=== PATIENT | male | born 1935 | race Caucasian/White ===

== ENCOUNTER 2019-07-21 10:49 | Emergency (ER) | payer MEDICARE, BC ==
[~2019-07-21] VITALS: Ht 180.3 cm; Wt 87.3 kg
[~2019-07-21 10:49] MED LIST: ASPI-1265 PO; MECL25TA3 PO; ROSU10TA2 PO
[2019-07-21] MEDS ORDERED: bacitracin 15gm ointment TP ONE (13:20)
[2019-07-21 13:44] VITALS: BP 143/57
== END 2019-07-21 13:51 | disposition home or self-care (01) ==
LOC: ER 10:50
DX: S61.411A Laceration without foreign body of right hand, initial encounter (principal); S50.312A Abrasion of left elbow, initial encounter; G47.30 Sleep apnea, unspecified; R51 Headache; M54.2 Cervicalgia; Z88.8 Allergy status to other drugs, medicaments and biological substances; Z79.899 Other long term (current) drug therapy; Z79.82 Long term (current) use of aspirin; Z91.013 Allergy to seafood; W01.198A Fall on same level from slipping, tripping and stumbling with subsequent striking against other object, initial encounter; Y93.89 Activity, other specified; Y92.89 Other specified places as the place of occurrence of the external cause; Y99.8 Other external cause status
CPT/HCPCS: 12002; 70450; 72125; 93005; 99284

== ENCOUNTER 2021-05-02 11:51 | Emergency (ER) | payer MEDICARE, BC ==
[~2021-05-02] VITALS: Ht 180.3 cm; Wt 81.0 kg
--- NOTE | 2021-05-02 14:18 | NUR ---
dr medellin at bedside.
[2021-05-02] MEDS ORDERED: LIDOcaine Viscous 15ml cup TP ONE ×2 (14:25→15:45)
--- NOTE | 2021-05-02 14:32 | NUR ---
to ct scan.
[2021-05-02] MEDS ORDERED: LIDOcaine 1% 30ml preserv. free vial IJ STA (14:45)
[2021-05-02 15:52] VITALS: BP 159/80
== END 2021-05-02 16:36 | disposition home or self-care (01) ==
LOC: ER 11:51
DX: S51.011A Laceration without foreign body of right elbow, initial encounter (principal); S81.812A Laceration without foreign body, left lower leg, initial encounter; S00.83XA Contusion of other part of head, initial encounter; S00.33XA Contusion of nose, initial encounter; S50.11XA Contusion of right forearm, initial encounter; S09.90XA Unspecified injury of head, initial encounter; G47.30 Sleep apnea, unspecified; Z72.89 Other problems related to lifestyle; Z91.013 Allergy to seafood; Z79.82 Long term (current) use of aspirin; Z79.899 Other long term (current) drug therapy; Z95.0 Presence of cardiac pacemaker; W18.09XA Striking against other object with subsequent fall, initial encounter; Y93.89 Activity, other specified; Y92.89 Other specified places as the place of occurrence of the external cause; Y99.8 Other external cause status
CPT/HCPCS: 70450; 96368; 99284

== ENCOUNTER 2022-11-29 06:27 | Day surgery (SDC) | payer MEDICARE, BC ==
[2022-11-23 10:48] LABS: BASOPHILS % (AUTO) 0.5 % (0-1); EOSINOPHILS # (AUTO) 0.1 X10'3 (0-0.9); EOSINOPHILS % (AUTO) 1.9 % (0-6); LYMPHOCYTES % (AUTO) 26.1 % (21-51); MEAN CORPUSCULAR HEMOGLOBIN 29.5 PG (27.0-31.0); MEAN CORPUSCULAR HGB CONC 33.4 g/dL (33.0-36.5); MEAN CORPUSCULAR VOLUME 88.3 FL (78-98); MEAN PLATELET VOLUME 7.3 FL (7.4-10.4); MONOCYTES # (AUTO) 0.6 X10'3 (0-0.9); MONOCYTES % (AUTO) 7.4 % (2-12); NEUTROPHILS # (AUTO) 4.9 X10'3 (1.8-7.7); NEUTROPHILS % (AUTO) 64.1 % (42-75); PRE OP HEMATOCRIT 40.2 % (42.0-52.0); PRE OP HEMOGLOBIN 13.4 g/dL (14.0-17.9); PRE OP PLATELET COUNT 162 X10'3 (140-440); RED BLOOD COUNT 4.56 X10'6 (4.70-6.10); RED CELL DISTRIBUTION WIDTH 14.4 % (11.5-14.5)
[2022-11-23 11:08] LABS: ALBUMIN 3.5 G/DL (3.4-5.0); ALKALINE PHOSPHATASE 79 IU/L (46-116); BLOOD UREA NITROGEN 18 MG/DL (7-18); BUN/CREATININE RATIO 17.1 (5.4-32.0); CHLORIDE 102 MMOL/L (99-107); CREATININE 1.05 MG/DL (0.60-1.10); PRE OP ALT 20 U/L (30-65); PRE OP ANION GAP 4 (8-16); PRE OP AST 19 U/L (10-37); PRE OP BILIRUB, TOTAL 0.3 MG/DL (0.0-1.0); PRE OP GLUCOSE 92 MG/DL (70-104); PRE OP POTASSIUM 3.9 MMOL/L (3.4-5.1); PRE OP SODIUM 135 MMOL/L (135-145); TOTAL CARBON DIOXIDE 29.3 MMOL/L (24-32); eGFR 67 ML/MIN
[2022-11-23 11:32] LABS: CLARITY,URINE CLEAR (Clear); COLOR,URINE YELLOW (Yellow); GLUCOSE, URINE NEGATIVE (Neg); KETONES,URINE NEGATIVE (Neg); LEUKOCYTE ESTERASE ,URINE NEGATIVE (Neg); NITRITES, URINE NEGATIVE (Neg); OCCULT BLOOD,URINE TRACE-INTACT (Neg); PROTEIN,URINE NEGATIVE (Neg); UROBILINOGEN,URINE 0.2 E.U/dL (0.2-1.0)
[2022-11-23 11:39] LABS: UA COLLECTION TYPE VOIDED
[2022-11-23 11:42] LABS: BACTERIA,URINE FEW /HPF (Neg); SQUAMOUS EPITHELIAL CELL,UR FEW /LPF (FEW); WBC,URINE 0-4 /HPF (0-4)
[2022-11-23 11:43] LABS: MUCUS STRANDS MANY /LPF (Neg)
[2022-11-29] VITALS (13 sets, daily range): BP systolic 124–149; BP diastolic 64–80
[~2022-11-29] VITALS: Ht 180.3 cm; Wt 72.6 kg
[~2022-11-29 06:27] MED LIST changes: +APIX5TAB3 PO; -ASPI-1265 PO; +FLUT16SP26 BOTHNARES; -MECL25TA3 PO; +ceFAZolin inj. 2,000 MG in dextrose 5%-water 100 ML IV ONE; +famotidine 20mg tablet PO ONE; +ringers solution, lacted 1,000 ML IV SCH
[2022-11-29] MEDS ORDERED: morphine 4 MG/ML inj SYRINge IV PRN ×2 (11:25→11:40)
[2022-11-29] MEDS ORDERED: ringers solution, lacted 1,000 ML IV SCH ×2 (11:25→11:40)
[2022-11-29] MEDS ORDERED: proCHLORperazine 10 MG/2 ml inj IV PRN (11:25)
[2022-11-29] MEDS ORDERED: morphine 2 MG/ML inj. syringe IV PRN ×2 (11:25→11:40)
[2022-11-29] MEDS ORDERED: meperidine/PF 25mg/ml syringe IV PRN ×3 (11:25)
[2022-11-29] MEDS ORDERED: ondansetron/PF 4mg/2ml inj IV PRN ×2 (11:25→11:40)
[2022-11-29] MEDS ORDERED: BUPIVAcaine 0.5% inj/PF 30 ML ONE (11:30)
[2022-11-29] MEDS ORDERED: ondansetron/PF 4mg/2ml inj ONE (11:40)
[2022-11-29] MEDS ORDERED: labetalol 20mg/4ml (5mg/ml) syringe IV PRN (11:40)
[2022-11-29] MEDS ORDERED: sevoflurane 250ml liquid IH ONE (11:40)
[2022-11-29] MEDS ORDERED: fentaNYL/PF 50MCG/1 ML 2ML syringe IV PRN ×2 (11:40)
[2022-11-29] MEDS ORDERED: glycopyrrolate 0.2mg/ml inj ONE (11:40)
[2022-11-29] MEDS ORDERED: neostigmine methylsulfate 1 MG/ML 10ml vial ONE (11:40)
[2022-11-29] MEDS ORDERED: dexamethasone sod phosphate 4mg/ml inj. ONE (11:40)
[2022-11-29] MEDS ORDERED: LIDOcaine 1%/PF 5ML 10 MG/ML VIAL ONE (11:40)
[2022-11-29] MEDS ORDERED: hydrALAZINE 20mg/ml inj. IV PRN (11:40)
[2022-11-29] MEDS ORDERED: fentaNYL/PF 50MCG/1 ML 2ML syringe ONE (11:48)
[2022-11-29] MEDS ORDERED: midazolam 1 mg/ML 2ml injection ONE (11:48)
[2022-11-29] MEDS ORDERED: propofol inj 20 ML IV ONE (12:00)
[2022-11-29] MEDS ORDERED: rocuronium 10mg/ml inj IV ONE (12:17)
[2022-11-29] MEDS ORDERED: BUPIVAcaine 0.5% inj/PF 30 ml vial IJ ONE (12:35)
--- NOTE | 2022-11-29 13:05 | NUR ---
Received from OR via , accompanied by Anesthesiologist and report given by Anesthesiolgist. PATIENT A&OX4, DENIES PAIN, V/S WNL, SCD ON , PIV 20G LUE, LAPS SITES CLOSED CDI TO ABDOMEN W/ BANDAIDS.
--- NOTE | 2022-11-29 14:45 | NUR ---
PATIENT A&OX4, DENIES PAIN, V/S WNL, SCD OFF , PIV 20G LUE D/C, LAPS SITES CLOSED CDI TO ABDOMEN W/ BANDAIDS. I HAVE REVIEWED D/C INSTRUCTIONS WITH PATIENT AND THEY HAVE VERBALIZED UNDERSTANDING OF INSTRUCTIONS. PATIENT D/C HOME WITH ALL BELONGINGS AND FAMILY GAVE TRANSPORT
== END 2022-11-29 14:45 | disposition home or self-care (01) ==
LOC: PAS 06:27
PROVIDERS: ATTEND Surgery
DX: K80.10 Calculus of gallbladder with chronic cholecystitis without obstruction (principal); E78.5 Hyperlipidemia, unspecified; G47.30 Sleep apnea, unspecified; Z87.891 Personal history of nicotine dependence; Z88.5 Allergy status to narcotic agent; Z88.8 Allergy status to other drugs, medicaments and biological substances; Z91.013 Allergy to seafood; Z95.0 Presence of cardiac pacemaker; Z98.890 Other specified postprocedural states; Z79.01 Long term (current) use of anticoagulants; Z79.899 Other long term (current) drug therapy
CPT/HCPCS: 36415; 47562; 80053; 81001; 82948; 85025; 93005; J0690; J1100; J2250; J2270; J2405; J2704; J2710; J3010; J3490; J7060; J7120; S0020; Z7506; Z7508; Z7512; 88304; A4215; A4618; A7000

== ENCOUNTER 2022-12-12 19:12 | Emergency (ER) | payer MEDICARE, BC ==
[~2022-12-12] VITALS: Ht 180.3 cm; Wt 81.8 kg
[~2022-12-12 19:12] MED LIST changes: -ceFAZolin inj. 2,000 MG in dextrose 5%-water 100 ML IV ONE; -famotidine 20mg tablet PO ONE; -ringers solution, lacted 1,000 ML IV SCH
[2022-12-12 19:42] VITALS: BP 149/65
[2022-12-12] MEDS ORDERED: acetaminophen 325mg tablet PO ONE (22:35)
== END 2022-12-13 00:19 | disposition home or self-care (01) ==
LOC: ER 19:13
DX: S51.012A Laceration without foreign body of left elbow, initial encounter (principal); S09.90XA Unspecified injury of head, initial encounter; R07.81 Pleurodynia; Z88.5 Allergy status to narcotic agent; Z88.6 Allergy status to analgesic agent; Z91.013 Allergy to seafood; Z87.891 Personal history of nicotine dependence; W19.XXXA Unspecified fall, initial encounter; Y93.89 Activity, other specified; Y92.89 Other specified places as the place of occurrence of the external cause; Y99.8 Other external cause status
CPT/HCPCS: 70450; 71046; 71100; 99284

== ENCOUNTER 2025-03-26 12:58 | Inpatient (IN) | payer MEDICARE, BC ==
[~2025-03-26] VITALS: Ht 180.3 cm; Wt 78.2 kg
--- NOTE | 2025-03-26 13:09 | ELECTROCARDIOGRAPH REPORT ---
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 John Ndiaye Measurements Intervals [place] Rate: 74 P: 0 GA: 45 QRS: -63 QRSD: 161 T: 90 QT: 477 QTc: 530 Interpretive Statements A-V dual-paced complexes w/ some inhibition No further analysis attempted due to paced rhythm Electronically Signed On 04-03-2025 18:42:[address] John Ndiaye Please click the below link to view image of tracing.
--- NOTE | 2025-03-26 13:12 | Physician Documentation ---
History of Present Illness ~ Stated Complaint: DIZZINESS Time Seen by MD: 13:04 Primary Medical Doctor: RONNY PALOMARES 89-year-old male presents to the ED with 2 hours of jcekizkj-nk-clfsqf dizziness. 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 He also adds that he checked his blood pressure and it was high for him. He reported having 170 systolic. I states that his arms feel weak and that his dizziness makes him feel as though he is unstable when trying to stand for denies any chest pain, reports increased shortness of breath. Denies nausea Medication Reconciliation Allergies: Coded Allergies: Shellfish (Verified Allergy, Unknown, hives, 11/28/22) acetaminophen (Verified Allergy, Unknown, lose control, 11/28/22) codeine (Verified Allergy, Unknown, lose control, 11/28/22) hydrocodone (Verified Allergy, Unknown, lose control, 11/28/22) tolmetin sodium (Verified Allergy, Unknown, 07/06/18) Uncoded Allergies: TAPE (Adverse Reaction, Severe, SKIN TEAR WITH BLEEDING, 12/01/22) Scheduled Apixaban (Eliquis), 1 TAB PO BID, (Reported) Fluticasone Propionate (Fluticasone Propionate), 2 SPRAYS BOTHNARES HS, (Reported) Rosuvastatin Calcium* (Crestor*), 10 MG PO HS, (Reported) Past Medical History Past Medical History: Sleep Apnea Past Surgical History: orthopedic surgeries, pacemaker, other Other Past Family History: none Alcohol Use: Occasionally Drug Use: none Lives with: Family Lives In: Home Occupation: employed Physical Exam Physical Exam General: Alert, mild distress. Respiratory: Lungs clear, no respiratory distress. Chest: No accessory muscle use. Cardiovascular: Regular rate and rhythm, no murmurs. v paced Neurologic: Oriented x4. Psychiatric: Normal mood and affect. Skin: Normal color, warm and dry. No edema, no ecchymosis. Progress Results/Orders Results/Orders Orders - SANTOSH PATINO CLINICAL OPERATIONS MANAGER Chest,Single View (03/26/25 13:05) Monitor (03/26/25 13:05) Saline Lock (03/26/25 13:05) Oxygen (03/26/25 13:05) Hs Troponin I W Calculations (03/26/25 15:05) Hs Troponin I W Calculations (03/26/25 16:05) * Orthostatic Vitals* Q12H (03/26/25 14:03) Page Hospitalist (03/26/25 14:04) Fill Out Med Reconciliation (03/26/25 14:04) Completed Orders - SANTOSH PATINO CLINICAL OPERATIONS MANAGER Chest,Single View (03/26/25 13:05) Cbc/Diff (03/26/25 13:05) BMP (03/26/25 13:05) PBNP (03/26/25 13:05) Electrocardiogram (03/26/25 13:05) Hs Troponin I W Calculations (03/26/25 13:05) Urinalysis, Cult If Indicated (03/26/25 13:58) Vital Signs 03/26/25 03/26/25 13:00 14:15 Temp 97.4 Pulse 71 81 Resp 20 19 B/P (MAP) 160/98 127/82 (97) Pulse Ox 98 98 O2 Flow Rate 0 0 Laboratory Tests Test 03/26/25 13:24 03/26/25 14:14 White Blood Count 6.9 Red Blood Count 4.32 L Hemoglobin 12.7 L Hematocrit 37.6 L Mean Corpuscular Volume 87.0 Mean Corpuscular Hemoglobin 29.5 Mean Corpuscular Hemoglobin Concent 33.9 Red Cell Distribution Width 14.4 Platelet Count 160 Mean Platelet Volume 6.9 L Neutrophils (%) (Auto) 60.9 Lymphocytes (%) (Auto) 27.5 Monocytes (%) (Auto) 8.3 Eosinophils (%) (Auto) 2.8 Basophils (%) (Auto) 0.5 Neutrophils # (Auto) 4.2 Lymphocytes # (Auto) 1.9 Monocytes # (Auto) 0.6 Eosinophils # (Auto) 0.2 Basophils # (Auto) 0.0 CBC Comment Sodium Level 130 L Potassium Level 4.1 Chloride Level 96 L Carbon Dioxide Level 25.9 Anion Gap 8 Blood Urea Nitrogen 15 Creatinine 1.03 Estimated GFR/1.73 m2 68 BUN/Creatinine Ratio 14.6 Glucose Level 100 Calcium Level 8.8 Troponin I High Sensitivity 8 Pro-B-Type Natriuretic Peptide 308 Albumin 3.2 L Chemistry Comments Urine Specimen Description Cln catch midstream Urine Color Straw Urine Clarity Clear Urine pH 7.5 Urine Specific [place] 1.010 Urine Protein Negative Urine Glucose (UA) Negative Urine Ketones Negative Urine Occult Blood Negative Urine Nitrite Negative Urine Bilirubin Negative Urine Urobilinogen 0.2 Urine Leukocyte Esterase Negative Urine Culture Indicated Not ind Volume Urine Centrifuged 10 ml Urine Comment Medical Decision Making Findings Can not currently rule out cardiac related dizziness.. Patient remains hemodynamically stable in the ED however I am requesting hospital admission for further evaluation and potential CT scan of the patient's head Differential Dx:Considerations: Include: anemia, CVA, dehydration, dysrhythmia, electrolyte imbalance, encephalopathy, Guillain-[place], hypoglycemia, hypotension, hypovolemia, labyrinthitis, Meniere's disease, myasathenia gravis, myocardial infarction, pulmonary embolus, renal failure, respiratory failure, TIA, VBI, vertigo central, vertigo peripheral, vestibular neuronitis, other Departure Disposition: 09 ADMITTED INPATIENT Impression: Primary Impression: Dizziness Condition: Stable Referrals: NO PRIMARY CARE PROVIDER (PCP) Signature Scribe Signature: d Attestation: Scribed for Santosh Patino Miner by Santosh Leigh NP . 03/26/25 15:10 SANTOSH PATINO NP Mar 26, 2025 13:12
[2025-03-26 13:31] LABS: BASOPHILS % (AUTO) 0.5 % (0-1); EOSINOPHILS # (AUTO) 0.2 X10'3 (0-0.9); EOSINOPHILS % (AUTO) 2.8 % (0-6); HEMATOCRIT 37.6 % (42.0-52.0); HEMOGLOBIN 12.7 g/dl (14.0-17.9); LYMPHOCYTES # (AUTO) 1.9 X10'3 (1.1-4.8); LYMPHOCYTES % (AUTO) 27.5 % (21-51); MEAN CORPUSCULAR HEMOGLOBIN 29.5 PG (27.0-31.0); MEAN CORPUSCULAR HGB CONC 33.9 g/dL (33.0-36.5); MEAN PLATELET VOLUME 6.9 FL (7.4-10.4); MONOCYTES # (AUTO) 0.6 X10'3 (0-0.9); MONOCYTES % (AUTO) 8.3 % (2-12); NEUTROPHILS # (AUTO) 4.2 X10'3 (1.8-7.7); NEUTROPHILS % (AUTO) 60.9 % (42-75); PLATELET COUNT 160 X10'3 (140-440); RED BLOOD COUNT 4.32 X10'6 (4.70-6.10); RED CELL DISTRIBUTION WIDTH 14.4 % (11.5-14.5); WHITE BLOOD COUNT 6.9 X10'3 (4.5-11.0)
--- NOTE | 2025-03-26 13:37 | RADIOLOGY REPORT ---
CHEST RADIOGRAPH Indication: CP Technique: Single frontal view of the chest was obtained COMPARISON: None FINDINGS: Lines and Tubes: Left chest wall pacemaker Lungs: Clear Pleura: No effusion. No pneumothorax. Cardiomediastinal contours: Unremarkable Bones: Unremarkable IMPRESSION: No acute disease.
[2025-03-26 14:02] LABS: ALBUMIN 3.2 G/DL (3.4-5.0); ANION GAP 8 (8-16); BLOOD UREA NITROGEN 15 MG/DL (7-18); BUN/CREATININE RATIO 14.6 (10.0-20.0); CALCIUM 8.8 MG/DL (8.5-10.1); CHLORIDE 96 MMOL/L (99-107); CREATININE 1.03 MG/DL (0.60-1.10); GLUCOSE 100 MG/DL (70-104); POTASSIUM 4.1 MMOL/L (3.5-5.1); PRO BRAIN NATRIURETIC PEPTIDE 308 PG/ML (0-450); SODIUM 130 MMOL/L (135-145); TOTAL CARBON DIOXIDE 25.9 MMOL/L (24-32); eCRCL 53 ML/MIN; eGFR 68 ML/MIN
[2025-03-26 14:30] LABS: BILIRUBIN,URINE NEGATIVE (Neg); CLARITY,URINE CLEAR (Clear); COLOR,URINE STRAW (Yellow); GLUCOSE, URINE NEGATIVE (Neg); KETONES,URINE NEGATIVE (Neg); LEUKOCYTE ESTERASE ,URINE NEGATIVE (Neg); NITRITES, URINE NEGATIVE (Neg); OCCULT BLOOD,URINE NEGATIVE (Neg); PH,URINE 7.5 (4.8-8.0); PROTEIN,URINE NEGATIVE (Neg); UROBILINOGEN,URINE 0.2 E.U/dL (0.2-1.0)
[2025-03-26] MEDS ORDERED: potassium Cl 40MEQ/1/2NS 520ml 520 ML IV PRN (14:30)
[2025-03-26] MEDS ORDERED: magnesium Cl slow-release 64mg tablet PO PRN (14:30)
[2025-03-26] MEDS ORDERED: magnesium sulf-water 4G/100mL 100 ML IV PRN (14:30)
[2025-03-26] MEDS ORDERED: potassium Cl 20 mEq SR tablet PO PRN ×2 (14:30)
[2025-03-26] MEDS ORDERED: ondansetron/PF 4mg/2ml inj IV PRN (14:30)
[2025-03-26] MEDS ORDERED: magnesium sulf-water 2g/50mL 50 ML IV PRN (14:30)
[2025-03-26 14:31] LABS: UA COLLECTION TYPE CLN CATCH MIDSTREAM
[2025-03-26] MEDS ORDERED: ASCO100031 PO (15:24)
[2025-03-26] MEDS: normal saline 1000ml 1,000 ML IV SCH (15:26)
--- NOTE | 2025-03-26 15:28 | RADIOLOGY REPORT ---
CT CT HEAD Indication: Dizziness EXAM DATE: 03/26/2025 02:59 PM COMPARISON: CT HEAD on DOS: 12/12/22, CT HEAD on DOS: 05/02/21 TECHNIQUE: CT of the head without intravenous contrast. RADIATION DOSE: CTDIvol: 57 mGy, DLP: 1070 mGy*cm FINDINGS: There is no intracranial hemorrhage. There is no extra-axial fluid, mass, mass effect or midline shif t. The ventricles are midline and normal in size. Basilar cisterns are patent. There are moderate per iventricular and subcortical white matter chronic microvascular ischemic changes. Zwbv-de-osxknxst g lobal cerebral volume loss. Old bilateral basal ganglia lacunar infarcts. The paranasal sinuses and mastoids are well-pneumatized. Imaged portion of the orbits are unremarkabl e. IMPRESSION: No intracranial hemorrhage or mass effect. Moderate chronic microvascular ischemic changes. Vgnp-zo-givbjoku global cerebral volume loss.
[2025-03-26 18:00] VITALS: BP 177/85; PULSE 83; RESP 17; TEMP 97.8; O2SAT 97
--- NOTE | 2025-03-26 18:28 | CARDIOLOGY REPORT ---
APPROVED REPORT EXAM: Comprehensive 2D, Doppler, and color-flow Echocardiogram. Patient Location: ER RM 10 Blood Pressure: 160/98 mmHg Heart Rate: 67 bpm Rhythm: Pacemaker Indications Syncope ProBNP: 308 Bradycardia Pacemaker (2008) Sleep Apnea CARDIAC TECH: Salvador Anaya MD NO Previous ECHO 2D Dimensions LA Diam2.7 cm IVSd 1.0 (0.7-1.1cm) LVDd 4.9 cm PWd 0.9 (0.7-1.1cm) IVSs 1.6 (0.8-1.2cm) LVDs 2.7 (2.5-4.0cm) PWs 1.3 (0.8-1.2cm) LVOT Diameter 2.02 (1.8-2.4cm) LVEF(%) 75.8 (>50%) Ao Asc Diam.3.38 cm IVC 14.26 mmFS (%) 44.7 % SV 86.8 ml CO 6.2 L/min M-Mode Dimensions Aortic Root 3.56 (2.2-3.7cm) Aortic Cusp Exc 1.25 (1.5-2.0cm) MV EPSS 0.3 (<0.5cm) Aortic Valve AoV Peak Brendan. 141.0 cm/s AoV VTI 32.0 cm AO Peak GR. 7.9 mmHg AO Mean GR. 5 mmHg LVOT VTI 24.47 cm LVOT Peak Brendan. 107.4 cm/s ÁNGELA(VTI)/BSA 2.45 cm2/m2 ÁNGELA (VTI) 2.45 cm2 Mitral Valve MV E Velocity 65.4 cm/s MV Peak Gr. 2 mmHg MV DECEL TIME 256 ms MV A Velocity 81.2 cm/s MV PHT 68 ms E/A Ratio 0.8 MVA (PHT) 3.24 cm2 MV VMax73.0 cm/s TDI Lateral E' P. V10.61 cm/s E/Lateral E' 6.2 Tricuspid Valve TR P. Velocity 248 cm/s RAP ESTIMATE 10 mmHg TR Peak Gr. 25 mmHg RVSP 35 mmHg LEFT VENTRICLE Normal LV size and wall thickness. Overall systolic function is normal. LVEF is 70-75%. RIGHT VENTRICLE RV is normal size and function. ATRIA The left atrium size is normal. Pacemaker lead is present in the right heart. AORTIC VALVE Trileaflet AV appears mildly sclerotic without stenosis. No insufficiency. MITRAL VALVE Mild mitral annular calcification without stenosis. Mild regurgitation. TRICUSPID VALVE The tricuspid valve is normal in structure with trace regurgitation. PULMONIC VALVE The pulmonary valve is normal in structure with physiologic insufficiency. GREAT VESSELS The aortic root is normal in size. The ascending aorta is normal in size. The IVC is normal in size a nd collapses >50% with inspiration. PERICARDIUM Normal pericardium. No effusion. Other Information Study Quality: Adequate Conclusion Normal LV size and wall thickness. Overall systolic function is normal. LVEF is 70-75%. RV is normal size and function. The left atrium size is normal. Pacemaker lead is present in the right heart. Trileaflet AV appears mildly sclerotic without stenosis. No insufficiency. Mild mitral annular calcification without stenosis. Mild regurgitation. The tricuspid valve is normal in structure with trace regurgitation. The pulmonary valve is normal in structure with physiologic insufficiency. Normal pericardium. No effusion.
--- NOTE | 2025-03-26 19:08 | HISTORY AND PHYSICAL ---
History & Physical Providers to CC ~ History of Present Illness Reason for Admit\Complaint: Dizziness this morning not improved History of Present Illness Patient is 89-year-old male with history of obstructive sleep apnea uses CPAP machine, hyperlipidemia, history of multiple concussions, status post pacemaker placement. Patient came with his concern regarding dizziness which he noticed this morning his dizzy not does not improved that was the main reason for visit. As per patient he had one beer yesterday, then he also did the vacum cleaning while doing that he got short of breaths and dizzy but at the same time he mentioned he walks 1-1/2 miles per day. He is not on any blood pressure medications. He follows with operation specialist Dr. Anaya in he has pacemaker in place. Currently he is on Eliquis. Patient denied any loss of consciousness he mentioned that off and on he gets dizzy but this time his dizziness does not improved. He also has some metallic device in his left ear which was placed in . Patient recently had workup done with his operation specialist Dr. Clifford in outpatient setting which was unremarkable. He feels he is drinking enough of fluids. He does not use any recreational drugs ex-smoker. Patient denies any other symptoms to me no chest pain no new changes in the medication. No other symptoms as per patient Allergies: Coded Allergies: Shellfish (Verified Allergy, Unknown, hives, 11/28/22) acetaminophen (Verified Allergy, Unknown, lose control, 11/28/22) codeine (Verified Allergy, Unknown, lose control, 11/28/22) hydrocodone (Verified Allergy, Unknown, lose control, 11/28/22) tolmetin sodium (Verified Allergy, Unknown, 07/06/18) Uncoded Allergies: TAPE (Adverse Reaction, Severe, SKIN TEAR WITH BLEEDING, 12/01/22) Home Medications Home Medications Active Reported Vitamin C (Ascorbic Acid) 1,000 Mg Tablet 1 Tab PO DAILY 15 Days DIRECTED Eliquis (Apixaban) 5 Mg Tablet 1 Tab PO BID Crestor* (Rosuvastatin Calcium) 10 Mg Tablet 10 Mg PO HS Past Medical History Past Medical History history of obstructive sleep apnea uses CPAP machine, hyperlipidemia, status post pacemaker placement. Past Surgical History Surgical History Comment other (Metal implant in the left ear ) Past Social History Social History Comment He does not use any recreational drugs ex-smoker. Usually drinks one beer per week and his last drink was yesterday. He lives in [facility] [place]. His in November 2024 . Exam Vitals: Vital Signs Date Time Temp Pulse Resp B/P (MAP) Pulse Ox O2 Delivery O2 Flow Rate FiO2 03/26/25 18:00 97.8 83 17 177/85 (115) 97 Room Air 03/26/25 14:15 0 General: General-patient not in any acute distress, alert awake oriented, not ill- appearing, age-appropriate, looks comfortable HEENT-atraumatic normocephalic, neck supple without elevated JVD, no thyromegaly or carotid bruit. No lymphadenopathy bilaterally. Eyes-no icterus or pallor seen in eyes Chest-clear to auscultation bilaterally, breathing nonlabored no tachypnea, no wheezing, no crepitation, no crackles. Heart-S1-S2 normal, regular heart rate no murmur Abdomen bowel sounds positive on auscultation, soft nondistended nontender no guarding, no rigidity Skin no active skin rash Neurology-grossly intact, nonfocal alert awake oriented Extremity- no pedal edema able to move all 4 extremities Psychiatry - patient is not confused or agitated cooperated during physical examination Diagnostic Data Last Recorded Lab Results: 03/26/25 1324 03/26/25 1324 Additional Plan Patient is 89 year old male with known history of obstructive sleep apnea uses CPAP machine, hyperlipidemia, status post pacemaker placement, on anticoagulation, history of multiple concussions. He is admitted for dizziness today further workup ordered for dizziness which include orthostatic blood pressure check carotid Doppler. Patient has metallic object in left ear can not order MRI of head. CT head ordered. We will do home medication reconciliation once updated in electronic record system. Patient recently had workup done with his operation specialist Dr. Clifford in outpatient setting which was unremarkable. Further management depending on diagnostic workup results and response to treatment. Incoming hospitalist team we will continue to follow patient in a.m. patient needs physical therapy evaluation before his discharge. Status discussed with the patient patient wishes chest compression and intubation but does not wanted intubation for prolonged period of time. Date of Service: Mar 26, 2025 Billing Provider: JESSICA MATHEWS MD Common Visit Codes: [id number] INP/OBS CARE (HIGH) Secondary Visit Codes: [id number]-[id number] CARE PLAN 30 MINUTES JESSICA MATHEWS MD Mar 26, 2025 19:08
[2025-03-26] MEDS: apixaban 5mg tablet PO ONE (20:11)
[2025-03-26 22:00] VITALS: BP 150/67; PULSE 60; RESP 13; TEMP 97.9; O2SAT 97
[2025-03-27 04:54] LABS: BASOPHILS % (AUTO) 0.6 % (0-1); EOSINOPHILS # (AUTO) 0.2 X10'3 (0-0.9); EOSINOPHILS % (AUTO) 3.4 % (0-6); HEMOGLOBIN 12.8 g/dl (14.0-17.9); LYMPHOCYTES # (AUTO) 1.6 X10'3 (1.1-4.8); LYMPHOCYTES % (AUTO) 23.9 % (21-51); MEAN CORPUSCULAR HEMOGLOBIN 29.8 PG (27.0-31.0); MEAN CORPUSCULAR HGB CONC 34.6 g/dL (33.0-36.5); MEAN CORPUSCULAR VOLUME 86.2 FL (78-98); MONOCYTES # (AUTO) 0.5 X10'3 (0-0.9); MONOCYTES % (AUTO) 7.6 % (2-12); NEUTROPHILS # (AUTO) 4.3 X10'3 (1.8-7.7); NEUTROPHILS % (AUTO) 64.5 % (42-75); PLATELET COUNT 162 X10'3 (140-440); RED BLOOD COUNT 4.29 X10'6 (4.70-6.10); RED CELL DISTRIBUTION WIDTH 14.4 % (11.5-14.5); WHITE BLOOD COUNT 6.7 X10'3 (4.5-11.0)
[2025-03-27 05:08] LABS: ANION GAP 5 (8-16); BLOOD UREA NITROGEN 13 MG/DL (7-18); BUN/CREATININE RATIO 11.9 (10.0-20.0); CHLORIDE 102 MMOL/L (99-107); CREATININE 1.09 MG/DL (0.60-1.10); GLUCOSE 95 MG/DL (70-104); POTASSIUM 4.9 MMOL/L (3.5-5.1); SODIUM 135 MMOL/L (135-145); TOTAL CARBON DIOXIDE 27.7 MMOL/L (24-32); eCRCL 50 ML/MIN; eGFR 64 ML/MIN
[2025-03-27 06:00] VITALS: BP 143/61; PULSE 69; RESP 16; TEMP 96.9; O2SAT 100
[2025-03-27] MEDS: heparin, porcine 5000 units/ml vial SQ SCH (07:47)
[2025-03-27 08:00] VITALS: BP_SYST 140; BP_SYST 142; BP_DIAS 62; BP_DIAS 66; BP_DIAS 71; PULSE 61; PULSE 70; PULSE 73
[2025-03-27] MEDS: apixaban 5mg tablet PO SCH (09:08)
[2025-03-27 10:00] VITALS: BP 113/53; PULSE 76; RESP 16; TEMP 98; O2SAT 97
--- NOTE | 2025-03-27 10:06 | VASCULAR REPORT ---
Carotid Duplex Clinical History: Dizzy, syncope Comparison: None Technique: Duplex Doppler evaluation of the extracranial carotid and vertebral arteries including color Doppler and spectral/pulsed waveform analysis was performed. Findings: RIGHT SIDE: The peak systolic velocities are 56 cm/s in the CCA, 71 cm/s in the ICA. The ICA/CCA ratio is 1.4. The external carotid artery is patent with peak systolic velocity of 76 cm/s proximally. The subclavian artery is patent with peak systolic velocity of 112 cm/s. There is appropriate antegrade flow in the right vertebral artery. LEFT SIDE: The peak systolic velocities are 65 cm/s in the CCA, 85 cm/s in the ICA. The ICA/CCA ratio is 1.7. The external carotid artery is patent with peak systolic velocity of 68 cm/s proximally. The subclavian artery is patent with peak systolic velocity of 109 cm/s. There is appropriate antegrade flow in the left vertebral artery. IMPRESSION: Less than 50% stenosis of bilateral carotid artery system. Antegrade flow in bilateral vertebral arteries and multiphasic flow in bilateral subclavian arteries. Reference: Radiology 2003; 229:340-346 Normal ICA PSV is <125 cm/sec and no plaque or intimal thickening is visible sonographically addition al criteria include ICA/CCA PSV ratio <2.0 and ICA EDV <40 cm/sec <50% ICA stenosis ICA PSV is <125 cm/sec and plaque or intimal thickening is visible sonographically additional criteria include ICA/CCA PSV ratio <2.0 and ICA EDV <40 cm/sec 50-69% ICA stenosis ICA PSV is 125-230 cm/sec and plaque is visible sonographically additional criter ia include ICA/CCA PSV ratio of 2.0-4.0 and ICA EDV of 40-100 cm/sec 70% ICA stenosis but less than near occlusion ICA PSV is >230 cm/sec and visible plaque and luminal narrowing are seen at conn-scale and color Doppler ultrasound (the higher the Doppler parameters lie above the threshold of 230 cm/sec, the greater the likelihood of severe disease) additional criteria include ICA/CCA PSV ratio >4 and ICA EDV >100 cm/sec
[2025-03-27 11:55] LABS: CHOL/HDL RATIO 2.4 (0.00-4.99); CHOLESTEROL 132 MG/DL (0-200); HDL CHOLESTEROL 54 MG/DL (35-60); LDL CHOLESTEROL 59 MG/DL (50-100); TRIGLYCERIDES 77 MG/DL (20-135)
[2025-03-27] MEDS ORDERED: iohexol 350MG/ML 100ml bottle IV ONE (12:18)
--- NOTE | 2025-03-27 13:24 | PROGRESS NOTE- Residence ---
Progress Note - Resident Providers to CC Resident Creating Document: ELLIE SHEA RES ~ Antibiotic Timeout Antibiotic Ordered?: No Subjective Patient seen and examined at bedside. States dizziness mainly when he stands up and tries to walk around. It has gotten better but he still having some residual lightheadedness, denies spinning of the room or ringing in the ears. He also mentioned that he has some numbness in the right upper extremity initially, resolved now. He uses CPAP HS, requesting if we can get it here. He was scheduled to get the yearly PPM check today with Dr Anaya office. We will contact his office to see if they can do it while he is here in the hospital. Objective Vital Signs Date Time Temp Pulse Resp B/P (MAP) Pulse Ox O2 Delivery O2 Flow Rate FiO2 03/27/25 10:00 98.0 76 16 113/53 (73) 97 Room Air 03/26/25 14:15 0 Result Diagram: 03/27/25 0434 03/27/25 0434 General: Awake and Alert, no acute distress. HEENT: Conjunctiva pink, Sclera clear, Mucus Membranes moist. Neck: Supple without masses and tenderness. Resp: Unlabored. Equal breath sounds bilaterally. Heart: Regular rhythm, normal S1 and S2, no rub, murmur or gallop. Abdomen: Soft and non tender no organomegaly. Normal bowel sounds x4 quadrant normoactive. No guarding or rigidity. Extremities: Bruises on upper extremities. Normal ROM, no swelling, nontender. MOTOR POOL CLERK: No gross motor or sensory abnormalities. Skin: Warm and Dry. Assessment Assessment 89-year-old male with history of obstructive sleep apnea on CPAP HS, AFib on Eliquis status post pacemaker, six concussions in the past, presented to the ED with chief complaints of dizziness. Plan Plan Dizziness Possible TIA Ruled out vertigo, no ringing or spinning of the room noted Electrolytes within normal limits CT head: No intracranial hemorrhage or mass effect. Moderate chronic microvascular ischemic changes noted. Gkzz-uh-ugtnfwwf global cerebral volume loss. Unable to do an MRI as he has an implant in the left ear which is not compatible Echo: EF 70-75% Vascular ultrasound of the carotid less than 50% stenosis of bilateral carotid arteries Follow up with CTA head and neck LDL 59, continue Crestor Contacted Dr. Anaya's office, last stress test done in May 2022 which was normal no reversible ischemia noted. Was last seen at Dr. Anaya's office in June 2024, echo was done which was normal. And he was referred to the [facility] for vertigo. Awaiting pacemaker check History of AFib on Eliquis History of bradycardia, Status post pacemaker in 2008 Rate controlled Continue Eliquis Hyperlipidemia On Crestor Med req done Code Status: Full code DVT prophylaxis: Eliquis Analgesia/sedation: None Line/tube: PIV GI prophylaxis: none Nutrition: Heart healthy Prognosis: Guarded Disposition: Continue medical management. Ellie Shea MD. IM Resident PGY-2 Date of Service: Mar 27, 2025 Billing Provider: ELVER RUBALCAVA MD Common Visit Codes: [id number] INP/OBS CARE(HIGH) ELLIE SHEA, RES Mar 27, 2025 13:24 ELVER RUBALCAVA MD Mar 27, 2025 21:14
--- NOTE | 2025-03-27 13:27 | RADIOLOGY REPORT ---
CT CTA NECK/HEAD INDICATION: tia EXAM DATE: 03/27/2025 12:27 PM COMPARISON: None RADIATION DOSE: CTDIvol: 14 mGy, DLP: 615 mGy*cm PROCEDURE: CT angiogram images were obtained of the head and neck. Coronal and sagittal reformatted i mages were created as well as 3D and/or MIP reconstructions. All CT scans at this medical facility are performed using dose modulation techniques as appropriate t o a performed exam including the following: Automated exposure control was utilized; adjustment of th e MA and/or KV according to patient size; and use of iterative reconstruction technique. FINDINGS: Head: Please see prior day CT head for further details. On the CT angiographic images, the internal carotid arteries are normal in caliber from the skull bas e to their bifurcations. The anterior and middle cerebral arteries and their branches appear normal. The anterior communicating artery appears normal. The bilateral posterior communicating arteries are not well seen and may be absent or hypoplastic. The vertebral arteries are codominant. The vertebral, basilar, superior cerebellar, and posterior cerebral arteries are normal in caliber. No aneurysm, ar teriovenous malformation, or stenosis is visible. Neck: Mild atherosclerotic plaque at the proximal internal carotid arteries without significant lumin al narrowing. The common carotid, internal carotid, external carotid, and vertebral arteries are normal in caliber. The vertebral arteries are codominant. The visualized intracranial arteries are normal. There is no evidence of contrast extravasation, filling defects, stenosis, or dissection. The pharynx and airway are normal. The thyroid, submandibular, and parotid glands appear normal. No l ymphadenopathy is seen. A cardiac pacer is seen. IMPRESSION: No acute abnormal CT angiographic findings of the head and neck without significant stenosis or large vessel occlusion.
[2025-03-27] MEDS: normal saline 500ml IV soln 500 ML IV ONE (13:30)
[2025-03-27 18:00] VITALS: BP 145/64; PULSE 60; RESP 16; TEMP 98.1; O2SAT 97
[2025-03-27] MEDS: atorvastatin 20mg tablet PO SCH (19:11)
[2025-03-27 20:00] VITALS: BP_SYST 136; BP_SYST 142; BP_SYST 144; BP_DIAS 61; BP_DIAS 63; BP_DIAS 69; PULSE 68; PULSE 74
[2025-03-27 22:00] VITALS: BP 139/69; PULSE 66; RESP 16; TEMP 97.7; O2SAT 96
[2025-03-28 06:00] VITALS: BP 148/66; PULSE 66; RESP 16; TEMP 97.4; O2SAT 97
[2025-03-28 06:13] LABS: BASOPHILS % (AUTO) 0.5 % (0-1); EOSINOPHILS # (AUTO) 0.2 X10'3 (0-0.9); EOSINOPHILS % (AUTO) 2.9 % (0-6); HEMATOCRIT 36.8 % (42.0-52.0); HEMOGLOBIN 12.6 g/dl (14.0-17.9); LYMPHOCYTES # (AUTO) 1.7 X10'3 (1.1-4.8); LYMPHOCYTES % (AUTO) 23.8 % (21-51); MEAN CORPUSCULAR HEMOGLOBIN 29.9 PG (27.0-31.0); MEAN CORPUSCULAR HGB CONC 34.2 g/dL (33.0-36.5); MEAN CORPUSCULAR VOLUME 87.6 FL (78-98); MEAN PLATELET VOLUME 7.5 FL (7.4-10.4); MONOCYTES # (AUTO) 0.7 X10'3 (0-0.9); MONOCYTES % (AUTO) 9.3 % (2-12); NEUTROPHILS # (AUTO) 4.5 X10'3 (1.8-7.7); NEUTROPHILS % (AUTO) 63.5 % (42-75); PLATELET COUNT 157 X10'3 (140-440); RED CELL DISTRIBUTION WIDTH 14.4 % (11.5-14.5); WHITE BLOOD COUNT 7.1 X10'3 (4.5-11.0)
[2025-03-28 06:23] LABS: ALBUMIN 2.9 G/DL (3.4-5.0); ANION GAP 8 (8-16); BLOOD UREA NITROGEN 15 MG/DL (7-18); BUN/CREATININE RATIO 14.3 (10.0-20.0); CALCIUM 8.8 MG/DL (8.5-10.1); CHLORIDE 102 MMOL/L (99-107); CREATININE 1.05 MG/DL (0.60-1.10); GLUCOSE 96 MG/DL (70-104); POTASSIUM 4.6 MMOL/L (3.5-5.1); SODIUM 136 MMOL/L (135-145); TOTAL CARBON DIOXIDE 25.8 MMOL/L (24-32); eCRCL 52 ML/MIN; eGFR 67 ML/MIN
[2025-03-28 08:00] VITALS: RESP 16; O2SAT 97
[2025-03-28] MEDS: ascorbic acid 500mg tablet PO SCH (08:13)
[2025-03-28 08:58] LABS: HEMOGLOBIN A1C 5.7 % (4.5-6.2)
[2025-03-28 09:06] LABS: THYROID STIMULATING HORMONE 3.01 ulU/ml (0.34-4.50)
[2025-03-28 10:06] VITALS: BP 148/66; PULSE 72; RESP 20; TEMP 97.5; O2SAT 98
[2025-03-28] MEDS: magnesium hydroxide 30ml (MOM) UD suspension PO ONE (11:18)
--- NOTE | 2025-03-28 16:42 | DISCHARGE SUMMARY-Residence ---
Discharge Summary Providers to CC Resident Creating Document: KAYA SHEA RES ~ Discharge Summary Admission Diagnosis: Dizziness , Hospital Course DATE OF ADMISSION: 03/26/2025 DATE OF DISCHARGE: 03/28/2025 Hospital course same as mentioned discharge summary. Discharge Diagnosis\Comment: Dizziness Possible TIA Ruled out vertigo, no ringing or spinning of the room noted History of AFib on Eliquis History of bradycardia, Status post pacemaker in 2008 Hyperlipidemia Operations\Procedures: None Consultants: None Complications: None Condition on DC: Stable Continued Medications: Apixaban (Eliquis) 5 Mg Tablet 1 TAB PO BID Ascorbic Acid (Vitamin C) 1,000 Mg Tablet 1 TAB PO DAILY for 15 Days, #15 TAB 0 Refills DIRECTED Rosuvastatin Calcium* (Crestor*) 10 Mg Tablet 10 MG PO HS Discharge Summary: As per HPI: Patient is 89-year-old male with history of obstructive sleep apnea uses CPAP machine, hyperlipidemia, history of multiple concussions, status post pacemaker placement. Patient came with his concern regarding dizziness which he noticed this morning his dizzy not does not improved that was the main reason for visit. As per patient he had one beer yesterday, then he also did the vacum cleaning while doing that he got short of breaths and dizzy but at the same time he mentioned he walks 1-1/2 miles per day. He is not on any blood pressure medications. He follows with forest fire specialist supervisor Dr. Anaya in he has pacemaker in place. Currently he is on Eliquis. Patient denied any loss of consciousness he mentioned that off and on he gets dizzy but this time his dizziness does not improved. He also has some metallic device in his left ear which was placed in . Patient recently had workup done with his forest fire specialist supervisor Dr. Clifford in outpatient setting which was unremarkable. He feels he is drinking enough of fluids. He does not use any recreational drugs ex-smoker. Patient denies any other symptoms to me no chest pain no new changes in the medication. No other symptoms as per patient Hospital course: On further evaluation electrolytes are within normal limits. CT head no intracranial hemorrhage or mass effect noted. Moderate chronic microvascular ischemic changes noted. [id number] global volume loss present. Unable to do an MRI as he has an implant in the left ear which is not compatible. Echo was done which showed an EF of 70-75%. Vascular ultrasound of the carotids: Less than 50% stenosis of bilateral carotid arteries. CT head and neck did not show any significant occlusion of major vessels. LDL was 59 continued his home medication Crestor. Contacted Dr. Anaya's office he had the last stress test done in May 2022 which was normal no reversible ischemia noted. And was last seen at Dr. Anaya's office in June 2024 echo was done which was normal and he was referred to the [facility] as he was having symptoms of vertigo. Post referral to [facility] he was feeling well. Pacemaker was interrogated and checked which was normal no acute events noted. He has a history of AFib on Eliquis was rate controlled. He worked with physical therapy and has been cleared for discharge. Telemetry monitoring was done, no acute changes arrhythmias noted. Vitals on discharge 148/66 blood pressure and heart rate 72. Orthostatics were done which were negative. His hospital course is uncomplicated he is hemodynamically stable on the day of discharge and his physical exam is as follows: General: Awake and Alert, no acute distress. HEENT: Conjunctiva pink, Sclera clear, Mucus Membranes moist. Neck: Supple without masses and tenderness. Resp: Unlabored. Equal breath sounds bilaterally. Heart: Regular rhythm, normal S1 and S2, no rub, murmur or gallop. Abdomen: Soft and non tender no organomegaly. Normal bowel sounds x4 quadrant normoactive. No guarding or rigidity. Extremities: Bruises on upper extremities. Normal ROM, no swelling, nontender. SOFTWARE INSTALLATION ENGINEER: No gross motor or sensory abnormalities. Skin: Warm and Dry. Discharge medications can be found above. Patient is being discharged with the following advice: Follow up with PCP within a week, you work up for acute stroke was negative, MRI could not be done due to the impalnt in the ear. CT head and CTA head and neck did not show any acute CVA. Continue Eliquis and crestor. PPM was interrogated and did not show any abnormal findigns. If condition worsens call 911 or go to the nearest er immediately. Laboratory Tests Test 03/27/25 04:34 03/28/25 04:50 White Blood Count 6.7 X10'3 7.1 X10'3 Red Blood Count 4.29 X10'6 4.20 X10'6 Hemoglobin 12.8 g/dl 12.6 g/dl Hematocrit 37.0 % 36.8 % Mean Corpuscular Volume 86.2 FL 87.6 FL Mean Corpuscular Hemoglobin 29.8 PG 29.9 PG Mean Corpuscular Hemoglobin Concent 34.6 g/dL 34.2 g/dL Red Cell Distribution Width 14.4 % 14.4 % Platelet Count 162 X10'3 157 X10'3 Mean Platelet Volume 7.0 FL 7.5 FL Neutrophils (%) (Auto) 64.5 % 63.5 % Lymphocytes (%) (Auto) 23.9 % 23.8 % Monocytes (%) (Auto) 7.6 % 9.3 % Eosinophils (%) (Auto) 3.4 % 2.9 % Basophils (%) (Auto) 0.6 % 0.5 % Neutrophils # (Auto) 4.3 X10'3 4.5 X10'3 Lymphocytes # (Auto) 1.6 X10'3 1.7 X10'3 Monocytes # (Auto) 0.5 X10'3 0.7 X10'3 Eosinophils # (Auto) 0.2 X10'3 0.2 X10'3 Basophils # (Auto) 0.0 X10'3 0.0 X10'3 CBC Comment Sodium Level 135 MMOL/L 136 MMOL/L Potassium Level 4.9 MMOL/L 4.6 MMOL/L Chloride Level 102 MMOL/L 102 MMOL/L Carbon Dioxide Level 27.7 MMOL/L 25.8 MMOL/L Anion Gap 5 8 Blood Urea Nitrogen 13 MG/DL 15 MG/DL Creatinine 1.09 MG/DL 1.05 MG/DL Estimated GFR/1.73 m2 64 ML/MIN 67 ML/MIN BUN/Creatinine Ratio 11.9 14.3 Glucose Level 95 MG/DL 96 MG/DL Calcium Level 9.0 MG/DL 8.8 MG/DL Albumin 3.0 G/DL 2.9 G/DL Triglycerides Level 77 MG/DL Cholesterol Level 132 MG/DL LDL Cholesterol 59 MG/DL HDL Cholesterol 54 MG/DL Cholesterol/HDL Ratio 2.4 Chemistry Comments Hemoglobin A1c 5.7 % Thyroid Stimulating Hormone (TSH) 3.01 ulU/ml *Problems/Diagnosis: (1) Dizziness Status: Acute Total Time Spent on D/C: > 30 Minutes Date of Service: Mar 28, 2025 Billing Provider: ELVER RUBALCAVA MD Common Visit Codes: 45361-ORK/OBS DISCH DAY >30min KAYA SHEA, RES Mar 28, 2025 16:34 ELVER RUBALCAVA MD Mar 29, 2025 09:35
[2025-03-30] MEDS ORDERED: FLUD0.1T PO (14:55)
== END 2025-03-28 12:30 | disposition home or self-care (01) | DRG 69 ==
LOC: ER 12:58 → ED HOLD 14:33 → EDBEDREQ 15:10 → ORTHO 4S 17:55
PROVIDERS: ADMIT Internal Medicine; ATTEND Internal Medicine
PROC: B3251ZZ Computerized Tomography (CT Scan) of Bilateral Common Carotid Arteries using Low Osmolar Contrast (ICD-10-PCS; principal; 2025-03-27)
PROC: B32G1ZZ Computerized Tomography (CT Scan) of Bilateral Vertebral Arteries using Low Osmolar Contrast (ICD-10-PCS; 2025-03-27)
PROC: B32R1ZZ Computerized Tomography (CT Scan) of Intracranial Arteries using Low Osmolar Contrast (ICD-10-PCS; 2025-03-27)
PROC: B3281ZZ Computerized Tomography (CT Scan) of Bilateral Internal Carotid Arteries using Low Osmolar Contrast (ICD-10-PCS; 2025-03-27)
PROC: 4B02XSZ Measurement of Cardiac Pacemaker, External Approach (ICD-10-PCS; 2025-03-28)
DX: G45.9 Transient cerebral ischemic attack, unspecified (principal); E78.5 Hyperlipidemia, unspecified; I48.91 Unspecified atrial fibrillation; G47.33 Obstructive sleep apnea (adult) (pediatric); Z95.0 Presence of cardiac pacemaker; Z88.6 Allergy status to analgesic agent; Z88.5 Allergy status to narcotic agent; Z87.820 Personal history of traumatic brain injury; Z79.01 Long term (current) use of anticoagulants; Z88.8 Allergy status to other drugs, medicaments and biological substances; Z91.013 Allergy to seafood
CPT/HCPCS: 36415; 70450; 70496; 70498; 71045; 80048; 80061; 81003; 83036; 83880; 84443; 84484; 85025; 87081; 93005; 93306; 93880; 96360; 99285; A4615; G0378; J1644; J7030; J7040; Q9967